=== PATIENT | female | born 1955 | race Caucasian/White ===

== ENCOUNTER 2018-03-17 05:15 | Day surgery (SDC) | payer OTHER ==
[~2018-03-17 05:15] MED LIST: SYNTHROID137 MCG PO; ZOCOR5 MG PO; [UNRECOGNIZED DRUG - OTHER]; [UNRECOGNIZED DRUG - OTHER]
== END 2018-03-17 10:00 | disposition home or self-care (01) ==
LOC: CIR.AMB 05:15
DX: D48.1 Neoplasm of uncertain behavior of connective and other soft tissue (principal)